=== PATIENT | male | born 1975 | race Caucasian/White ===

== ENCOUNTER 2017-05-21 14:02 | Emergency (ER) | payer SELFPAY ==
[~2017-05-21] VITALS: Ht 170.2 cm; Wt 54.4 kg
[2017-05-21] MEDS ORDERED: KETOROLAC TROMETHAMINE 30 MG INJ IM ONE (15:00)
[2017-05-21] MEDS ORDERED: KETOROLAC TROMETHAMINE 30 MG INJ ONE (15:02)
--- NOTE | 2017-05-21 15:10 | NUR ---
Patient discharged to home in stable conditon. Written and verbal after care instructions given. Patient verbalizes understanding of instructions.
[2017-05-21] MEDS ORDERED: HYDROCODONE/APAP 5-325MG TABLET PO ONE (15:15)
[2017-05-21] MEDS ORDERED: HYDROCODONE/APAP 5-325MG TABLET ONE (15:20)
== END 2017-05-21 15:18 | disposition home or self-care (01) ==
LOC: ER 14:02
DX: S82.002A Unspecified fracture of left patella, initial encounter for closed fracture (principal); V49.9XXA Car occupant (driver) (passenger) injured in unspecified traffic accident, initial encounter; Y93.89 Activity, other specified; Y92.89 Other specified places as the place of occurrence of the external cause; Y99.8 Other external cause status
CPT/HCPCS: 29505; 72072; 73564; 73610; 96372; 99284; A4663; J1885

== ENCOUNTER 2017-05-25 22:17 | Emergency (ER) | payer SELFPAY ==
[~2017-05-25] VITALS: Ht 170.2 cm; Wt 54.4 kg
--- NOTE | 2017-05-25 23:15 | NUR ---
ERMD at bedside for MSE.
[2017-05-25] MEDS ORDERED: diphenhydrAMINE 50 MG/1 ML VIAL IM ONE (23:30)
[2017-05-25] MEDS ORDERED: HYDROMORPHONE 1 MG/1 ML DISP.SYRIN IM ONE (23:30)
[2017-05-25] MEDS ORDERED: diphenhydrAMINE 50 MG/1 ML VIAL ONE (23:42)
[2017-05-25] MEDS ORDERED: HYDROMORPHONE 2 MG/1 ML DISP.SYRIN ONE (23:43)
--- NOTE | 2017-05-26 00:36 | NUR ---
Patient is resting comfortably in bed with eyes closed
--- NOTE | 2017-05-26 02:31 | NUR ---
Patient is resting comfortably in bed with eyes closed
--- NOTE | 2017-05-26 04:00 | NUR ---
Patient is resting comfortably in bed with eyes closed
--- NOTE | 2017-05-26 05:18 | NUR ---
Patient discharged to home in stable conditon. Written and verbal after care instructions given. Patient verbalizes understanding of instructions.
== END 2017-05-26 05:18 | disposition home or self-care (01) ==
LOC: ER 22:21
DX: M48.54XA Collapsed vertebra, not elsewhere classified, thoracic region, initial encounter for fracture (principal); M06.9 Rheumatoid arthritis, unspecified
CPT/HCPCS: 72131; A4663; J1170; J1200

== ENCOUNTER 2017-05-28 11:11 | Emergency (ER) | payer SELFPAY ==
[~2017-05-28] VITALS: Ht 170.2 cm; Wt 54.4 kg
[2017-05-28] MEDS ORDERED: PROMETHAZINE HCL 25 MG/1 ML VIAL IM ONE (11:30)
[2017-05-28] MEDS ORDERED: HYDROMORPHONE 1 MG/1 ML DISP.SYRIN IM ONE (11:30)
--- NOTE | 2017-05-28 11:36 | NUR ---
Medically cleared for discharged by MD. Patient discharged in stable conditon. Written and verbal after care instructions given to patient. Patient verbalizes understanding of instructions. Patient says he wants to stay in our waiting room for few minutes. Patient ambulated out of our ER with steady gait.
[2017-05-28] MEDS ORDERED: PROMETHAZINE HCL 25 MG/1 ML VIAL ONE (11:42)
[2017-05-28] MEDS ORDERED: HYDROMORPHONE 2 MG/1 ML DISP.SYRIN ONE (11:42)
== END 2017-05-28 11:37 | disposition home or self-care (01) ==
LOC: ER 11:11
DX: M72.2 Plantar fascial fibromatosis (principal)
CPT/HCPCS: A4663; J1170; J2550

== ENCOUNTER 2017-05-29 08:17 | Emergency (ER) | payer SELFPAY ==
[~2017-05-29] VITALS: Ht 170.2 cm; Wt 54.4 kg
--- NOTE | 2017-05-29 08:53 | NUR ---
Patient discharged to home in stable conditon. Written and verbal after care instructions given. Patient verbalizes understanding of instructions.pt walks i nsteady gait
[2017-05-29] MEDS ORDERED: KETOROLAC TROMETHAMINE 30 MG INJ IM ONE (09:00)
[2017-05-29] MEDS ORDERED: KETOROLAC TROMETHAMINE 30 MG INJ ONE (09:08)
== END 2017-05-29 09:00 | disposition home or self-care (01) ==
LOC: ER 08:17
DX: M72.2 Plantar fascial fibromatosis (principal); M79.652 Pain in left thigh
CPT/HCPCS: A4663; J1885